=== PATIENT | female | born 1995 | race Hispanic/Latino ===

== ENCOUNTER 2021-06-30 20:23 | Emergency (ER) | payer OTHER ==
[~2021-06-30] VITALS: Ht 149.9 cm; Wt 83.5 kg
[2021-06-30] MEDS ORDERED: IBUPROFEN 600 MG TABLET PO ONE (23:30)
[2021-06-30] MEDS ORDERED: ACETAMINOPHEN 500 MG TABLET ONE (23:30)
[2021-06-30] MEDS ORDERED: 0.9%NACL 1000ML 1,000 ML IV ONE (23:30)
[2021-06-30 23:40] LABS: BASOPHILS % (AUTO) 0.6 % (0.0-5.0); EOSINOPHILS % (AUTO) 0.2 % (0.0-8.0); HEMATOCRIT 43.8 % (36-48); LYMPHOCYTES % (AUTO) 18.2 % (21.0-51.0); MEAN CORPUSCULAR HEMOGLOBIN 29.1 pg (27.0-33.0); MEAN CORPUSCULAR HGB CONC 34.5 g/dL (32.0-36.0); MEAN CORPUSCULAR VOLUME 84.4 fL (79-99); MONOCYTES % (AUTO) 3.6 % (3.0-13.0); NEUTROPHILS % (AUTO) 76.6 % (40.0-77.0); PLATELET COUNT (AUTO) 212 K/uL (130-400); RED BLOOD CELL COUNT(AUTO) 5.19 MIL/uL (4.00-5.50); RED CELL DISTRIBUTION WIDTH 13.2 % (11.0-15.5); WHITE BLOOD COUNT (AUTO) 6.6 K/uL (4.8-10.8)
[2021-06-30 23:53] LABS: CREATININE 0.7 mg/dL (0.5-1.5); POTASSIUM 4.5 mmol/L (3.5-5.1)
[2021-06-30 23:56] LABS: APPEARANCE,URINE CLEAR (CLEAR); BILIRUBIN,URINE NEGATIVE (NEGATIVE); COLOR,URINE YELLOW (YELLOW); GLUCOSE, URINE (UA) NEGATIVE (NEGATIVE); KETONES,URINE 5 mg/dL (NEGATIVE); LEUKOCYTE ESTERASE ,URINE NEGATIVE (NEGATIVE); NITRATE,URINE NEGATIVE (NEGATIVE); OCCULT BLOOD,URINE TRACE-INTACT (NEGATIVE); PROTEIN,URINE NEGATIVE (NEGATIVE); UROBILINOGEN,URINE 0.2 mg/dL (0.2-1.0)
[2021-07-01] MEDS ORDERED: CEFTRIAXONE 1G VIAL IVP ONE
[2021-07-01] MEDS ORDERED: 0.9%NACL 1000ML 1,000 ML IV ONE
[2021-07-01 00:04] LABS: ALBUMIN 3.7 g/dL (3.5-5.0); BILIRUBIN,TOTAL 0.5 mg/dL (0.2-1.0); TOTAL PROTEIN, SERUM 8.1 g/dL (6.0-8.3)
[2021-07-01 00:19] LABS: BACTERIA,URINE Few /HPF (None Seen); MUCUS,URINE Rare LPF (None Seen); RBC,URINE None Seen /HPF (0-1); SQUAMOUS EPITHELIAL CELL,UR Rare /HPF (0-2); WBC,URINE None Seen /HPF (0-1)
[2021-07-01] MEDS ORDERED: PHARMACY COMMUNICATION MISC SCH (00:30)
[2021-07-01] MEDS ORDERED: IOHEXOL 350 MG/ML 100ML INFUS..BTL IV ONE (00:32)
[2021-07-01] MEDS ORDERED: CEFTRIAXONE 1G VIAL ONE (01:35)
[2021-07-01 01:52] LABS: INFLUENZA TYPE A NEGATIVE FOR TYPE A (NEG); INFLUENZA TYPE B NEGATIVE FOR TYPE B (NEG)
[2021-07-01] MEDS ORDERED: DOXYCYCLINE 100MG+NS 250ML 250 ML IV ONE (02:26)
[2021-07-01] MEDS ORDERED: DOXYCYCLINE HYCLATE 100 MG TABLET PO SCH (02:30)
[2021-07-01] MEDS ORDERED: DOXY-336 PO (02:44)
[2021-07-01 02:48] VITALS: BP 99/55
== END 2021-07-01 02:58 | disposition home or self-care (01) ==
LOC: EDH 20:23 → EDBD 20:23 → EDH 07-01 02:58
DX: A79.9 Rickettsiosis, unspecified (principal); R50.9 Fever, unspecified; Z20.822 Contact with and (suspected) exposure to COVID-19; Z88.0 Allergy status to penicillin; Z79.1 Long term (current) use of non-steroidal anti-inflammatories (NSAID)
CPT/HCPCS: 36415 ×2; 71045; 74177; 80053; 81001; 83605; 84484; 84702; 85025; 87040 ×2; 87635; 87804 ×2; 93005; 96361; 96374; 99285; C9803; J0696; J3490; Q9967